=== PATIENT | female | born 1975 | race African-American/Black ===

== ENCOUNTER 2019-05-16 21:01 | Emergency (ER) | payer SELFPAY | END 2019-05-16 21:47 | disposition home or self-care (01) | LOC: ERS 21:01 | DX: R00.2 Palpitations (principal); D64.9 Anemia, unspecified; J45.909 Unspecified asthma, uncomplicated | CPT/HCPCS: 93005 ==

== ENCOUNTER 2019-09-21 19:48 | Inpatient (IN) | payer SELFPAY ==
[~2019-09-21 19:48] MED LIST: Iopamidol-370 76% 500 ML 1 ML ONE
[2019-09-21 20:59] LABS: #Lymphocytes 0.4 thou/uL (1.20-3.40); #Monocytes 0.3 thou/uL (0.11-0.59); #Neutrophils 2.8 thou/uL (1.40-6.50); %Eosinophils 0.5 % (0.0-10.0); %Lymphocytes 12.1 % (21.0-51.0); %Monocytes 7.9 % (0.0-10.0); %Neutrophils 79.6 % (42.0-75.0); Hemoglobin 9.4 g/dL (12.0-16.0); Mean Corpuscular HGB CONC 31.6 g/dL (32.0-36.0); Mean Corpuscular Volume 69.7 fL (78.0-98.0); Mean Platelet Volume 11.8 fL (7.4-10.4); Platelet Count 286 thou/uL (130-400); RBC Distribution Width 20.4 % (11.5-14.5); Red Blood Cell (RBC) Count 4.24 mill/uL (4.20-5.40); White Blood Cell (WBC) Count 3.5 thou/uL (4.8-10.8)
--- NOTE | 2019-09-21 21:20 | RAD ---
CHEST ONE VIEW: 09/21/19 HISTORY: Cough, generalized bodyaches. Heart size is enlarged. Pulmonary vessels appear mildly engorged. Some increased density in the bases with blunting to the costophrenic angle suggest small effusions, probably with atelectasis. IMPRESSION: Cardiomegaly with some mild vascular engorgement. Suggestion of small effusions and bibasilar atelect asis. POS: JUAN
[2019-09-21 21:21] LABS: ALT (SGPT) 32 U/L (8-55); AST (SGOT) 34 U/L (5-34); Albumin 3.9 g/dL (3.5-5.0); Alkaline Phosphatase 62 U/L (40-110); Anion Gap 14 mmol/L (10-20); BUN (Urea Nitrogen) 8 mg/dL (7.0-18.7); Bilirubin, Total 0.3 mg/dL (0.2-1.2); CK (CPK) 71 U/L (29-168); Calc. Creatinine Clearance 0 mL/min (70-130); Calcium 8.1 mg/dL (7.8-10.44); Carbon Dioxide 22 mmol/L (22-29); Chloride 105 mmol/L (98-107); Estimated GFR-MDRD Greater than 90; Globulin 2.5 g/dL (2.4-3.5); Glucose 111 mg/dL (70-105); Lipase 12 U/L (8-78); Potassium 3.6 mmol/L (3.5-5.1); Protein, Total 6.4 g/dL (6.0-8.3); Sodium 137 mmol/L (136-145)
[2019-09-21 21:24] LABS: Hypochromia MODERATE=16-30 cells (100X) (0-5/hpf); MDiff Complete? YES; Microcytosis MODERATE=15-30 cells (100X) (0-5/hpf); Ovalocytes SLIGHT = 2-5 cells (100X) (0-1/hpf); Platelet Morphology Comment Appears Adequate; Polychromasia SLIGHT = 2-3 cells (100X) (0-2/hpf); Reflex for Review?? YES; Schistocytes SLIGHT = 2-5 cells (100X) (0-1/hpf); Target Cells SLIGHT = 2-5 cells (100X) (0-1/hpf); Tear Drops SLIGHT = 2-5 cells (100X) (0-1/hpf)
[2019-09-21] MEDS ORDERED: HYDROcodone/Acetaminophen 10/325 mg Tablet ONE (21:25)
[2019-09-21] MEDS ORDERED: Acetaminophen 500 MG TAB ONE (23:08)
[2019-09-21] MEDS ORDERED: Furosemide 40 MG/4 ML VIAL ONE (23:08)
--- NOTE | 2019-09-21 23:24 | CT ---
CT PULMONARY ANGIOGRAM WITH IV CONTRAST AND 3D POSTPROCESSIN09/21/19 HISTORY: Fever, chills, cough, bodyaches, sore throat, dizziness. FINDINGS: There is suboptimal opacification of pulmonary arterial vasculature. No filling defects are seen in t he central pulmonary arteries. The peripheral branches are not adequately opacified for satisfactory evaluation. The thoracic aorta is well opacified without aneurysmal dissection. No pleural or perica rdial effusions are seen. There are patchy infiltrates in the posterior lung bases and the right midd le lobe. No pneumothoraces are seen. There are mild degenerative changes in the spine. IMPRESSION: 1. No CT evidence of central pulmonary embolism. 2. Bilateral infiltrates suspicious for pneumonia. POS: OFF
[2019-09-22] MEDS ORDERED: cefTRIAXone\\ROCEPHIN 2 GM VIAL ONE (00:13)
[2019-09-22] MEDS ORDERED: Oseltamivir 75 MG CAP PO SCH ×2 (00:15→15:30)
[2019-09-22 00:25] LABS: Troponin I Less than 0.010 ng/mL (< 0.028)
[2019-09-22] MEDS ORDERED: Azithromycin 500 MG VIAL ONE (01:02)
[2019-09-22 02:17] VITALS: BMI 39.4
[2019-09-22] MEDS ORDERED: Acetaminophen 650 MG Suppository PR PRN (02:53)
[2019-09-22 03:17] LABS: Lactic Acid 1.1 mmol/L (0.5-2.2)
[2019-09-22] MEDS: Acetaminophen 325 MG TAB PO PRN ×4 (03:54→17:53)
[2019-09-22] MEDS ORDERED: Sodium Chloride 0.9% 0 ML ONE (04:08)
--- NOTE | 2019-09-22 04:32 | HP ---
TIME OF ASSESSMENT: 0200 hours. CHIEF COMPLAINT: Cough and generalized body aches. HISTORY OF PRESENT ILLNESS: Ms. Harmon is a 44-year-old woman, who presented to the emergency department today with complaints of sore throat and persistent cough. She reports having generalized body aches, chills, and feeling feverish. States her symptoms started the day before yesterday and she has been getting worse since then. She has also noted some tightness in her chest when walking. States her cough has been dry and denies any sputum or hemoptysis. Reports generalized chest discomfort. Denies being around any sick contacts at home. ED COURSE: In the emergency department, she was noted to have a temperature of 103. The patient underwent investigations including an EKG showing normal sinus rhythm with a heart rate of 96. She had a chest x-ray done, which showed cardiomegaly with some mild vascular engorgement. There is suggestion of small effusions and bibasilar atelectasis. She had laboratory studies done, which showed a white count of 3.5, hemoglobin of 9.4, hematocrit 29.6, platelets 286, neutrophils 79.6%. Sodium 137, potassium 3.6, BUN 8, creatinine 0.82, GFR greater than 90, glucose 111. LFTs unremarkable. BNP normal at 54.7. Troponin negative x2. CK 71. LFTs unremarkable. She had an elevated D-dimer of 1.70. This prompted a CT angiogram of the chest. She was not found to have any evidence of PE, but was noted to have bilateral infiltrates suspicious for pneumonia. The patient tested positive for influenza A. She was given IV antibiotics for pneumonia (azithromycin and Rocephin), and also started on Tamiflu. Due to initial findings on chest x-ray , the patient was also treated for CHF and given 40 mg of IV Lasix. PAST MEDICAL HISTORY: 1. Hypertension. 2. Anemia. 3. Asthma. PAST SURGICAL HISTORY: Tubal ligation. SOCIAL HISTORY: The patient denies any tobacco use, alcohol consumption, or illicit drug use. FAMILY HISTORY: Noncontributory. ALLERGIES: MORPHINE. CURRENT MEDICATIONS: Spironolactone. PHYSICAL EXAMINATION: GENERAL: The patient appears generally unwell, but well developed, and in no acute distress. VITAL SIGNS: Temperature 98.8, pulse 89, respirations 20, O2 saturations 94% on room air, and blood pressure 100/65. HEENT: Normocephalic and atraumatic. Pupils are equal, round, and reactive to light. Sclerae without icterus. Oropharynx is clear. NECK: Supple. LUNGS: Notable for expiratory wheezing. The patient unable to take a deep breath without exacerbating her cough. CARDIAC: Regular rate and rhythm. ABDOMEN: Soft, nontender, nondistended. Normoactive bowel sounds present. No guarding or rigidity. No renal angle tenderness EXTREMITIES: No lower leg swelling or edema. NEUROLOGIC: Alert and oriented x3. SKIN: Warm and dry. INVESTIGATIONS: As mentioned above in HPI. IMPRESSION AND PLAN: Ms. Harmon is a 44-year-old woman, who is being admitted for management of the following. 1. Bilateral pneumonia. The patient started on IV antibiotics which we will continue. These findings concerning for pneumonia were noted on the CT angiogram. On chest x-ray, there was mention of cardiomegaly and changes possibly consistent with congestive heart failure. Her BNP is normal. We will order an echo. 2. Flu. We will continue oseltamivir and we will place the patient on droplet isolation precautions. 3. Cough, nonproductive. We will give Tessalon for cough and Tylenol to help with chest discomfort, likely associated to coughing fits. 4. Asthma. DuoNeb ordered and we will reconcile home medications once verified. 5. History of hypertension. Resume home medications once verified. 6. Gastrointestinal prophylaxis with famotidine. 7. Deep venous thrombosis prophylaxis. Mechanical SCDs. Walking program consulted. 8. Code status full. Surrogate decision maker is her , Johann Bennett. Case discussed with Dr. Barker, who agrees with plan of care as described above. Job ID: [id number] MTDD
[2019-09-22 06:44] LABS: Anion Gap 12 mmol/L (10-20); BUN (Urea Nitrogen) 9 mg/dL (7.0-18.7); Calc. Creatinine Clearance 180 mL/min (70-130); Calcium 7.7 mg/dL (7.8-10.44); Carbon Dioxide 24 mmol/L (22-29); Chloride 104 mmol/L (98-107); Estimated GFR-MDRD Greater than 90; Glucose 126 mg/dL (70-105); Sodium 137 mmol/L (136-145)
[2019-09-22 06:51] LABS: #Lymphocytes 0.5 thou/uL (1.20-3.40); #Monocytes 0.3 thou/uL (0.11-0.59); #Neutrophils 2.4 thou/uL (1.40-6.50); %Basophils 0.2 % (0.0-1.0); %Eosinophils 0.1 % (0.0-10.0); %Lymphocytes 14.9 % (21.0-51.0); %Monocytes 8.8 % (0.0-10.0); Hemoglobin 8.7 g/dL (12.0-16.0); Hypochromia SLIGHT = 6-15 cells (100X) (0-5/hpf); Large Platelets SLIGHT; MDiff Complete? YES; Mean Corpuscular HGB CONC 30.9 g/dL (32.0-36.0); Mean Corpuscular Hemoglobin 21.4 pg (27.0-31.0); Mean Corpuscular Volume 69.3 fL (78.0-98.0); Mean Platelet Volume 12.2 fL (7.4-10.4); Microcytosis SLIGHT = 6-15 cells (100X) (0-5/hpf); Platelet Count 269 thou/uL (130-400); Platelet Morphology Comment Appears Adequate; RBC Distribution Width 20.5 % (11.5-14.5); Red Blood Cell (RBC) Count 4.06 mill/uL (4.20-5.40); White Blood Cell (WBC) Count 3.2 thou/uL (4.8-10.8)
[2019-09-22] MEDS ORDERED: Potassium Chloride 20 MEQ TAB PO SCH (09:00)
[2019-09-22] MEDS ORDERED: FLU VACC QS2019-20(6MOS UP)/PF 60 MCG/0.5 ML SYRINGE IM ONE (09:00)
[2019-09-22] MEDS: Famotidine/PF 20 mg/2ml Vial SLOW IVP SCH ×2 (09:43→20:42)
[2019-09-22] MEDS: Benzonatate 100 MG CAP PO PRN ×2 (09:44→17:53)
[2019-09-22] MEDS: Spironolactone 100 MG TAB PO SCH (09:45)
--- NOTE | 2019-09-22 15:02 | PDOC.HOSPP ---
- Subjective Encounter Date: 09/22/19 Encounter Time: 09:45 Subjective: pt up in bed feels unwell. - Objective Vital Signs & Weight: Vital Signs (12 hours) Temp Pulse Resp BP Pulse Ox 09/22/19 12:49 98.7 F 65 20 112/75 98 09/22/19 08:00 94 L 09/22/19 06:53 98.5 F 80 20 104/67 94 L Weight Weight 283 lb 4.8 oz Result Diagrams: 09/22/19 05:32 09/22/19 05:32 Hospitalist ROS - Review of Systems Respiratory: reports: shortness of breath Cardiovascular: reports: chest pain Gastrointestinal: denies: nausea, vomiting, abdominal pain, diarrhea, constipation, melena, hematochezia, other Genitourinary: denies: dysuria, frequency, incontinence, hematuria, retention, other Musculoskeletal: denies: neck pain, shoulder pain, arm pain, back pain, hand pain, leg pain, foot pain, other - Medication Medications: Active Medications Generic Name Dose Route Start Last Admin Trade Name Freq PRN Reason Stop Dose Admin Acetaminophen 650 mg 09/22/19 02:53 09/22/19 13:55 Tylenol PO 650 mg Q4H PRN Administration Headache/Fever/Mild Pain (1-3) Benzonatate 100 mg 09/22/19 02:57 09/22/19 09:44 Tessalon PO 100 mg TIDPRN PRN Administration Cough Famotidine 20 mg 09/22/19 09:00 09/22/19 09:43 Pepcid SLOW IVP 20 mg Q12HR PRASHANT Administration Spironolactone 100 mg 09/22/19 08:00 09/22/19 09:45 Aldactone PO 100 mg QAM-WM PRASHANT Administration - Exam Heart: negative: RRR, no murmur, no gallops, no rubs, normal peripheral pulses, irregular, diminshed peripheral pulses, murmur present, II/IV, III/IV Respiratory: rhonchi Gastrointestinal: negative: soft, non-tender, non-distended, normal bowel sounds , no palpable masses, no hepatomegaly, no splenomegaly, no bruit, no guarding, no rigidity, tender to palpation, distended, diminished bowl sounds, voluntary guarding Hosp A/P (1) Influenza A Code(s): J10.1 - FLU DUE TO OTH IDENT INFLUENZA VIRUS W OTH RESP MANIFEST Status: Acute (2) Pneumonia Code(s): J18.9 - PNEUMONIA, UNSPECIFIED ORGANISM Status: Acute (3) Obesity Code(s): E66.9 - OBESITY, UNSPECIFIED Status: Acute (4) Iron deficiency anemia Code(s): D50.9 - IRON DEFICIENCY ANEMIA, UNSPECIFIED Status: Acute - Plan will continue abx and start her on tamiflu. will also give her iv iron. prn kyung. possible discharge meaghan if she feels well in am. I have encouraged her to ambulate.
[2019-09-22] MEDS ORDERED: Iron Sucrose Complex 100 MG in Sodium Chloride 0.9% 100 ML IVPB SCH (15:15)
[2019-09-22] MEDS ORDERED: Iron, Sodium Ferric Gluconate 125 MG in Sodium Chloride 0.9% 100 ML IVPB SCH (15:45)
[2019-09-22] MEDS: Oseltamivir 75 MG CAP PO SCH (20:42)
[2019-09-23] MEDS: cefTRIAXone\\ROCEPHIN 1 GM in Sodium Chloride 0.9% 100 ML IVPB SCH ×2 (00:08→23:28)
[2019-09-23] MEDS: Benzonatate 100 MG CAP PO PRN ×2 (00:08→15:09)
[2019-09-23] MEDS: Azithromycin 500 MG in Sodium Chloride 0.9% 250 ML 250 ML IVPB SCH (00:52)
[2019-09-23] MEDS: Spironolactone 100 MG TAB PO SCH (08:39)
[2019-09-23] MEDS: Oseltamivir 75 MG CAP PO SCH ×2 (08:40→20:41)
[2019-09-23] MEDS: Famotidine/PF 20 mg/2ml Vial SLOW IVP SCH ×2 (08:40→20:41)
[2019-09-23] MEDS: Acetaminophen 325 MG TAB PO PRN (08:42)
--- NOTE | 2019-09-23 12:28 | PDOC.HOSPP ---
- Subjective Encounter Date: 09/23/19 Encounter Time: 09:55 Subjective: pt up in bed still has some sob. - Objective Vital Signs & Weight: Vital Signs (12 hours) Temp Pulse Resp BP Pulse Ox 09/23/19 12:00 98.2 F 92 20 113/72 95 09/23/19 08:40 97 09/23/19 07:32 98.6 F 86 20 109/75 97 09/23/19 04:09 98.8 F 98 18 111/73 93 L Weight Weight 283 lb 4.8 oz Result Diagrams: 09/22/19 05:32 09/22/19 05:32 Hospitalist ROS - Review of Systems Respiratory: reports: shortness of breath Cardiovascular: denies: chest pain, palpitations, orthopnea, paroxysmal noc. dyspnea, edema, light headedness, other Gastrointestinal: denies: nausea, vomiting, abdominal pain, diarrhea, constipation, melena, hematochezia, other - Medication Medications: Active Medications Generic Name Dose Route Start Last Admin Trade Name Freq PRN Reason Stop Dose Admin Acetaminophen 650 mg 09/22/19 02:53 09/23/19 08:42 Tylenol PO 650 mg Q4H PRN Administration Headache/Fever/Mild Pain (1-3) Benzonatate 100 mg 09/22/19 02:57 09/23/19 00:08 Tessalon PO 100 mg TIDPRN PRN Administration Cough Famotidine 20 mg 09/22/19 09:00 09/23/19 08:40 Pepcid SLOW IVP 20 mg Q12HR PRASHANT Administration Azithromycin 500 mg/ Sodium 250 mls @ 250 mls/hr 09/23/19 01:00 09/23/19 00: 52 Chloride IVPB 250 mls 0100 PRASHANT Administration Ceftriaxone Sodium 1 gm/ 100 mls @ 200 mls/hr 09/22/19 23:59 09/23/19 00:08 Sodium Chloride IVPB 100 mls 2359 PRASHANT Administration Oseltamivir Phosphate 75 mg 09/22/19 21:00 09/23/19 08:40 Tamiflu PO 09/26/19 21:01 75 mg BID PRASHANT Administration Spironolactone 100 mg 09/22/19 08:00 09/23/19 08:39 Aldactone PO 100 mg QAM-WM PRASHANT Administration - Exam Neck: negative: supple, symmetric, no JVD, no thyromegaly, no lymphadenopathy, no carotid bruit, JVD Heart: negative: RRR, no murmur, no gallops, no rubs, normal peripheral pulses, irregular, diminshed peripheral pulses, murmur present, II/IV, III/IV Respiratory: negative: CTAB, no wheezes, no rales, no ronchi, normal chest expansion, no tachypnea, normal percussion, rales, rhonchi, tachypneic, wheezes Hosp A/P (1) Influenza A Code(s): J10.1 - FLU DUE TO OTH IDENT INFLUENZA VIRUS W OTH RESP MANIFEST Status: Acute (2) Pneumonia Code(s): J18.9 - PNEUMONIA, UNSPECIFIED ORGANISM Status: Acute (3) Obesity Code(s): E66.9 - OBESITY, UNSPECIFIED Status: Acute (4) Iron deficiency anemia Code(s): D50.9 - IRON DEFICIENCY ANEMIA, UNSPECIFIED Status: Acute - Plan will continue abx and start her on tamiflu. will also give her iv iron. prn kyung. possible discharge meaghan if she feels well in am. I have encouraged her to ambulate. / pt encouraged to use IS, she is still coughing and does not feel well. possible discharge in am. echo normal.
[2019-09-24] MEDS: Azithromycin 500 MG in Sodium Chloride 0.9% 250 ML 250 ML IVPB SCH (01:17)
[2019-09-24] MEDS: Benzonatate 100 MG CAP PO PRN ×3 (04:36→21:22)
[2019-09-24] MEDS: Acetaminophen 325 MG TAB PO PRN ×2 (04:36→21:10)
[2019-09-24] MEDS ORDERED: Adenosine 6 MG/2 ML VIAL ONE (07:29)
[2019-09-24] MEDS: Spironolactone 100 MG TAB PO SCH (08:11)
[2019-09-24] MEDS: Oseltamivir 75 MG CAP PO SCH ×2 (08:12→21:09)
[2019-09-24] MEDS: Famotidine/PF 20 mg/2ml Vial SLOW IVP SCH ×2 (08:12→21:10)
[2019-09-24] MEDS ORDERED: Potassium Chloride 20 MEQ TAB PO SCH (08:45)
[2019-09-24] MEDS ORDERED: Iron, Sodium Ferric Gluconate 125 MG in Sodium Chloride 0.9% 100 ML IVPB SCH (08:45)
[2019-09-24] MEDS ORDERED: Iron Sucrose Complex 100 MG in Sodium Chloride 0.9% 100 ML IVPB SCH (08:45)
[2019-09-24 09:13] LABS: #Monocytes 0.3 thou/uL (0.11-0.59); #Neutrophils 1.1 thou/uL (1.40-6.50); %Basophils 1.2 % (0.0-1.0); %Eosinophils 1.6 % (0.0-10.0); %Lymphocytes 41.3 % (21.0-51.0); %Monocytes 10.7 % (0.0-10.0); %Neutrophils 45.2 % (42.0-75.0); Mean Corpuscular HGB CONC 30.6 g/dL (32.0-36.0); Mean Corpuscular Hemoglobin 21.9 pg (27.0-31.0); Mean Corpuscular Volume 71.4 fL (78.0-98.0); Mean Platelet Volume 10.5 fL (7.4-10.4); Platelet Count 302 thou/uL (130-400); RBC Distribution Width 20.2 % (11.5-14.5); Red Blood Cell (RBC) Count 4.57 mill/uL (4.20-5.40); White Blood Cell (WBC) Count 2.4 thou/uL (4.8-10.8)
[2019-09-24 12:30] LABS: Reticulocyte Count 0.5 % (0.5-1.5)
--- NOTE | 2019-09-24 14:17 | PDOC.HOSPP ---
- Subjective Encounter Date: 09/24/19 Encounter Time: 09:15 Subjective: pt up in bed no complains - Objective Vital Signs & Weight: Vital Signs (12 hours) Temp Pulse Resp BP Pulse Ox 09/24/19 11:23 98.3 F 81 16 121/81 97 09/24/19 08:12 96 09/24/19 07:17 98 F 82 20 95/62 96 Weight Weight 283 lb 4.8 oz I&O: 09/23/19 09/24/19 09/25/19 06:59 06:59 06:59 Intake Total 3000 Balance 3000 Result Diagrams: 09/24/19 09:03 09/22/19 05:32 Hospitalist ROS - Review of Systems Respiratory: reports: shortness of breath Cardiovascular: denies: chest pain, palpitations, orthopnea, paroxysmal noc. dyspnea, edema, light headedness, other Gastrointestinal: denies: nausea, vomiting, abdominal pain, diarrhea, constipation, melena, hematochezia, other - Medication Medications: Active Medications Generic Name Dose Route Start Last Admin Trade Name Freq PRN Reason Stop Dose Admin Acetaminophen 650 mg 09/22/19 02:53 09/24/19 04:36 Tylenol PO 650 mg Q4H PRN Administration Headache/Fever/Mild Pain (1-3) Benzonatate 100 mg 09/22/19 02:57 09/24/19 04:36 Tessalon PO 100 mg TIDPRN PRN Administration Cough Famotidine 20 mg 09/22/19 09:00 09/24/19 08:12 Pepcid SLOW IVP 20 mg Q12HR PRASHANT Administration Oseltamivir Phosphate 75 mg 09/22/19 21:00 09/24/19 08:12 Tamiflu PO 09/26/19 21:01 75 mg BID PRASHANT Administration Spironolactone 100 mg 09/22/19 08:00 09/24/19 08:11 Aldactone PO 100 mg QAM-WM PRASHANT Administration - Exam Heart: negative: RRR, no murmur, no gallops, no rubs, normal peripheral pulses, irregular, diminshed peripheral pulses, murmur present, II/IV, III/IV Respiratory: wheezes Gastrointestinal: negative: soft, non-tender, non-distended, normal bowel sounds , no palpable masses, no hepatomegaly, no splenomegaly, no bruit, no guarding, no rigidity, tender to palpation, distended, diminished bowl sounds, voluntary guarding Extremities: negative: no cyanosis, no clubbing, no edema, 1+ LE edema, 2+ LE edema, clubbing Hosp A/P (1) Influenza A Code(s): J10.1 - FLU DUE TO OTH IDENT INFLUENZA VIRUS W OTH RESP MANIFEST Status: Acute (2) Pneumonia Code(s): J18.9 - PNEUMONIA, UNSPECIFIED ORGANISM Status: Acute (3) Obesity Code(s): E66.9 - OBESITY, UNSPECIFIED Status: Acute (4) Iron deficiency anemia Code(s): D50.9 - IRON DEFICIENCY ANEMIA, UNSPECIFIED Status: Acute - Plan will continue abx and start her on tamiflu. will also give her iv iron. prn duonebs. possible discharge meaghan if she feels well in am. I have encouraged her to ambulate. 09/23 pt encouraged to use IS, she is still coughing and does not feel well. possible discharge in am. echo normal. 09/24 will continue current tx and change her iv abx to oral. possible home in am. will give her one more dose of iron.
[2019-09-25] MEDS: Benzonatate 100 MG CAP PO PRN (05:16)
[2019-09-25] MEDS: Spironolactone 100 MG TAB PO SCH (08:15)
[2019-09-25] MEDS: Oseltamivir 75 MG CAP PO SCH (08:15)
[2019-09-25] MEDS: Famotidine/PF 20 mg/2ml Vial SLOW IVP SCH (08:16)
[2019-09-25 11:34] VITALS: BP 119/80; TEMP 98.1
--- NOTE | 2019-09-25 20:55 | DIS ---
DATE OF ADMISSION: 09/22/2019 DATE OF DISCHARGE: 09/25/2019 DISCHARGE DIAGNOSES: 1. Influenza A pneumonia. 2. Pneumonia. 3. Obesity. 4. Iron deficiency anemia. HOSPITAL COURSE: The patient is a 44-year-old female who initially presented to the hospital with not feeling well and some congestion, generalized body aches. At this time, flu was checked which was positive. She also had a CTA which was negative for PE, however indicated some lower lobe possible bilateral pneumonia. Her BNP was normal. She also had an echocardiogram which was essentially normal. Her EF of 55% to 60%, normal left atrium. She was put on broad-spectrum antibiotics. She continued to improve. She was then discharged home. She will follow up with her primary care doctor next week. MEDICATIONS: Will be: 1. Iron 160 mg daily. 2. Spironolactone 25 mg daily. 3. Tamiflu 75 twice a day. 4. Levofloxacin 500 mg daily. 5. Tessalon Perles 100 mg t.i.d. as needed. 6. Albuterol inhaler. PHYSICAL EXAMINATION: VITAL SIGNS: Temperature 98.1, pulse 77, respirations 18, 97% on room air, blood pressure 119/80. GENERAL: She is awake, alert, and oriented x3. Does not appear in distress. CV: S1 and S2 present. No murmurs, rubs, gallops. ABDOMEN: Soft and nontender. Bowel sounds are present x2. DISCHARGE PLAN: Again, she will be discharged home. She will follow up with her primary. Job ID: [id number]
[2019-09-25] MEDS ORDERED: Famotidine 20 MG TAB PO SCH (21:00)
== END 2019-09-25 11:42 | disposition home or self-care (01) | DRG 194 ==
LOC: ERS 19:48 → OBSVTOIN 09-22 00:25 → T4-A 09-22 00:25
PROVIDERS: ADMIT Internal Medicine Sleep Medicine; ATTEND Internal Medicine
DX: J10.00 Influenza due to other identified influenza virus with unspecified type of pneumonia (principal); J98.11 Atelectasis; E66.9 Obesity, unspecified; D50.9 Iron deficiency anemia, unspecified; I10 Essential (primary) hypertension; Z98.51 Tubal ligation status; Z88.6 Allergy status to analgesic agent; Z68.39 Body mass index [BMI] 39.0-39.9, adult
CPT/HCPCS: 36415; 71046; 71275; 80048; 80053; 82550; 83605; 83690; 83880; 84484; 85025; 85046; 85060; 85379; 87804; 93005; 93306; 94640; 94760; 96365; 96375; J0153; J0456; J0696; J1940; J2916; J3490; J7050; J7620; Q9967; S0028

== ENCOUNTER 2020-02-01 10:39 | Emergency (ER) | payer OTHER ==
[2020-02-01] MEDS ORDERED: Dexamethasone 10 MG/ML VIAL ONE (11:44)
--- NOTE | 2020-02-01 11:46 | RAD ---
EXAM: Single view of the chest HISTORY: Covid signs and symptoms with cough for a week and sinus pressure COMPARISON: 07/02/2014 FINDINGS: Single view of the chest shows a normal sized cardiomediastinal silhouette. There is scatte red multifocal peripheral opacities in the lungs. The bones are unremarkable. IMPRESSION: Scattered multifocal peripheral opacities.
[2020-02-01 11:54] LABS: #Lymphocytes 0.6 thou/uL (1.20-3.40); #Monocytes 0.2 thou/uL (0.11-0.59); #Neutrophils 3.6 thou/uL (1.40-6.50); %Basophils 0.2 % (0.0-1.0); %Eosinophils 0.2 % (0.0-10.0); %Monocytes 4.9 % (0.0-10.0); %Neutrophils 80.7 % (42.0-75.0); Hemoglobin 10.6 g/dL (12.0-16.0); Mean Corpuscular HGB CONC 31.5 g/dL (32.0-36.0); Mean Corpuscular Hemoglobin 23.1 pg (27.0-31.0); Mean Corpuscular Volume 73.4 fL (78.0-98.0); Mean Platelet Volume 9.6 fL (7.4-10.4); Platelet Count 284 thou/uL (130-400); RBC Distribution Width 18.9 % (11.5-14.5); Red Blood Cell (RBC) Count 4.59 mill/uL (4.20-5.40); White Blood Cell (WBC) Count 4.4 thou/uL (4.8-10.8)
[2020-02-01 11:56] LABS: BHCG - Serum Negative (NEGATIVE); Pregs Control Background? CLEAR/WHITE (CLR/WHITE); Pregs Control Bar Appear? YES (CONTROL BAR)
[2020-02-01 12:19] LABS: ALT (SGPT) 26 U/L (8-55); AST (SGOT) 29 U/L (5-34); Alkaline Phosphatase 56 U/L (40-110); Anion Gap 12 mmol/L (10-20); BUN (Urea Nitrogen) 5 mg/dL (7.0-18.7); Bilirubin, Total 0.3 mg/dL (0.2-1.2); CK (CPK) 142 U/L (29-168); Calc. Creatinine Clearance 0 mL/min (70-130); Calcium 8.2 mg/dL (7.8-10.44); Carbon Dioxide 25 mmol/L (22-29); Chloride 104 mmol/L (98-107); Estimated GFR-MDRD Greater than 90; Globulin 3.3 g/dL (2.4-3.5); Glucose 97 mg/dL (70-105); Lipase 10 U/L (8-78); Potassium 3.7 mmol/L (3.5-5.1); Protein, Total 7.3 g/dL (6.0-8.3); Sodium 137 mmol/L (136-145)
[2020-02-01] MEDS ORDERED: Iopamidol-370 76% 500 ML 1 ML ONE (13:47)
--- NOTE | 2020-02-01 13:48 | CT ---
CTA CHEST WITH CONTRAST: Axial tomograms obtained following an angio protocol with multiplanar reconstruction and 3D post proc essing. INDICATION: Cough. Shortness of breath. Recently diagnosed with pneumonia. COMPARISON: Comparison is made to the CTA chest of 09/21/2019. FINDINGS: No evidence of pulmonary embolus to the segmental level. Mediastinal and hilar adenopathy again noted. Thoracic aorta is unremarkable. Review of the lung dorantes shows scattered bilateral ground-glass infiltrative opacities which have pr ogressed when compared to the 09/21/2019 exam. At that time, there were bibasilar infiltrates or atel ectasis described. There is cardiomegaly and mild vascular congestion. There is an enhancing nodule in the anterior left lobe of the liver which is unchanged from the prior CT most consistent with a vascular anomaly; however, hypervascular metastatic lesion cannot be exclu ded. Osseous structures unremarkable. IMPRESSION: 1. No evidence of proximal pulmonary embolus. 2. Cardiomegaly with vascular congestion. Mediastinal and hilar adenopathy. 3. Scattered bilateral hazy ground-glass infiltrates more prominent in the posterior lower lobes. C OVID pneumonia should be excluded. 4. Enhancing nodule in the anterior right lobe of the liver measuring approximately 1.2 cm. Hemangi gerson or other transient hepatic defects are considerations; although, other hypervascular lesion such as metastasis cannot be excluded. POS: EMPERATRIZ
== END 2020-02-01 15:40 | disposition home or self-care (01) ==
LOC: ERS 10:39
DX: J02.9 Acute pharyngitis, unspecified (principal); D64.9 Anemia, unspecified; J45.909 Unspecified asthma, uncomplicated; Z20.828 Contact with and (suspected) exposure to other viral communicable diseases; Z79.899 Other long term (current) drug therapy
CPT/HCPCS: 71045; 71275; 80053; 82550; 83690; 83880; 84484; 84703; 85025; 85379; 93005; 96361; 96374; J1100; Q9967

== ENCOUNTER 2020-02-04 13:09 | Emergency (ER) | payer OTHER ==
[2020-02-04] MEDS ORDERED: Dicyclomine 20 MG TAB ONE (13:43)
[2020-02-04 14:13] LABS: Bilirubin Negative (Negative); Blood, Urine Negative (Negative); Clarity Clear (Clear); Glucose, Urine (Dipstick) Normal (Negative); Ketone, Urine Negative (Negative); Leukocyte Negative Leu/uL (Negative); Nitrite Negative (Negative); Protein, Urine (Dipstick) Negative (Neg-Trace); Specific Gravity, Urine 1.015 (1.002-1.036); Urobilinogen Normal mg/dL (Less than 2); pH, Urine 7.5 (5.0-9.0)
[2020-02-04 14:14] LABS: Hemoglobin 10.7 g/dL (12.0-16.0); Mean Corpuscular HGB CONC 31.5 g/dL (32.0-36.0); Mean Corpuscular Volume 73.1 fL (78.0-98.0); Mean Platelet Volume 8.6 fL (7.4-10.4); Platelet Count 421 thou/uL (130-400); RBC Distribution Width 18.8 % (11.5-14.5); Red Blood Cell (RBC) Count 4.65 mill/uL (4.20-5.40); White Blood Cell (WBC) Count 7.4 thou/uL (4.8-10.8)
--- NOTE | 2020-02-04 14:14 | RAD ---
PORTABLE CHEST: DATE: 02/04/2020. PROVIDED CLINICAL HISTORY: Dyspnea. FINDINGS: Cardiac and mediastinal silhouette is unchanged in appearance. Bilateral airspace disease is redemon strated, similar to prior. There is no pleural fluid or pneumothorax apparent. IMPRESSION: Persistent bilateral airspace disease, compatible with pneumonia. POS: NATHAN
[2020-02-04 14:18] LABS: Pregnancy Test - Urine (BHCG) Negative (Negative); Pregu Control Background? CLEAR/WHITE (CLR/WHITE); Pregu Control Bar Appear? YES (CONTROL BAR); Specific Gravity 1.015 (1.002-1.036)
[2020-02-04 14:33] LABS: Anisocytosis SLIGHT = 6-15 cells (100X) (0-5/hpf); Band 7 % (5-11); Hypochromia SLIGHT = 6-15 cells (100X) (0-5/hpf); Lymphocytes 28 % (21-51); MDiff Complete? YES; Microcytosis SLIGHT = 6-15 cells (100X) (0-5/hpf); Monocytes 5 % (0-10); Neutrophil 57 % (42-75); Ovalocytes SLIGHT = 2-5 cells (100X) (0-1/hpf); Platelet Morphology Comment Appears Increased; Polychromasia SLIGHT = 2-3 cells (100X) (0-2/hpf); Reactive Lymphocytes 3 % (0-10); Schistocytes SLIGHT = 2-5 cells (100X) (0-1/hpf); Target Cells SLIGHT = 2-5 cells (100X) (0-1/hpf); Tear Drops SLIGHT = 2-5 cells (100X) (0-1/hpf)
[2020-02-04 14:36] LABS: ALT (SGPT) 21 U/L (8-55); AST (SGOT) 19 U/L (5-34); Albumin 3.6 g/dL (3.5-5.0); Alkaline Phosphatase 46 U/L (40-110); Anion Gap 10 mmol/L (10-20); BUN (Urea Nitrogen) 10 mg/dL (7.0-18.7); Bilirubin, Total 0.3 mg/dL (0.2-1.2); Calc. Creatinine Clearance 0 mL/min (70-130); Calcium 7.6 mg/dL (7.8-10.44); Carbon Dioxide 26 mmol/L (22-29); Chloride 107 mmol/L (98-107); Estimated GFR-MDRD Greater than 90; Globulin 2.9 g/dL (2.4-3.5); Glucose 102 mg/dL (70-105); Lipase 35 U/L (8-78); Potassium 3.3 mmol/L (3.5-5.1); Protein, Total 6.5 g/dL (6.0-8.3); Sodium 140 mmol/L (136-145)
[2020-02-04] MEDS ORDERED: Potassium Chloride 20 MEQ TAB ONE (14:45)
== END 2020-02-04 15:34 | disposition home or self-care (01) ==
LOC: ERS 13:09
DX: U07.1 COVID-19 (principal); J12.89 Other viral pneumonia; R10.12 Left upper quadrant pain; E87.6 Hypokalemia; D64.9 Anemia, unspecified; J45.909 Unspecified asthma, uncomplicated; Z79.899 Other long term (current) drug therapy
CPT/HCPCS: 71045; 80053; 81003; 81025; 83690; 85025; 99284

== ENCOUNTER 2020-11-10 18:56 | Emergency (ER) | payer OTHER | END 2020-11-10 20:25 | disposition home or self-care (01) | LOC: ERS 18:56 | DX: J06.9 Acute upper respiratory infection, unspecified (principal); J45.909 Unspecified asthma, uncomplicated; Z79.899 Other long term (current) drug therapy | CPT/HCPCS: 99283 ==